=== PATIENT | male | born 1985 | race Caucasian/White ===

== ENCOUNTER 2018-12-20 07:22 | Emergency (ER) | payer OTHER ==
[~2018-12-20] VITALS: Ht 180.3 cm; Wt 85.9 kg
[2018-12-20 07:23] VITALS: BP 134/83
== END 2018-12-20 09:30 | disposition home or self-care (01) ==
LOC: M ED 07:22
DX: S30.812A Abrasion of penis, initial encounter (principal); N48.89 Other specified disorders of penis; X58.XXXA Exposure to other specified factors, initial encounter; Y92.9 Unspecified place or not applicable; Y93.9 Activity, unspecified; Y99.9 Unspecified external cause status; Z98.890 Other specified postprocedural states; Z77.098 Contact with and (suspected) exposure to other hazardous, chiefly nonmedicinal, chemicals